=== PATIENT | female | born 1985 | race Caucasian/White ===

== ENCOUNTER 2022-04-14 13:36 | Inpatient (IN) | payer MEDICAID, OTHER ==
[2022-04-14] MEDS ORDERED: Sodium Chloride 0.9% 10 ML Syringe FLUSH PRN (16:00)
[2022-04-14] MEDS ORDERED: Methylergonovine 0.2 MG/1 ML Amp IM PRN (16:00)
[2022-04-14] MEDS ORDERED: Misoprostol 200 MCG Tab RECTAL PRN (16:00)
[2022-04-14] MEDS ORDERED: Carboprost Tromethamine 250 MCG/1 ML Amp IM PRN (16:00)
[2022-04-14] MEDS ORDERED: Lidocaine 1% 50 ML MDV INJECT ONE (16:00)
[2022-04-14] MEDS ORDERED: Oxytocin 10 Units/1 ML SDV IV ONE (16:00)
[2022-04-14] MEDS ORDERED: Ondansetron 4 MG Tab.DIS PO PRN (16:00)
[2022-04-14] MEDS ORDERED: Lactated Ringers 1,000 ML IV ONE (16:52)
[2022-04-14] MEDS ORDERED: fentaNYL 50 MCG/ML SDV IVPUSH ONE (16:53)
[2022-04-14] MEDS ORDERED: ePHEDrine 50 MG/ML SDV IVPUSH PRN (16:55)
[2022-04-14] MEDS ORDERED: Lidocaine 1% 50 ML MDV INJECT PRN (16:58)
[2022-04-14] MEDS ORDERED: Lactated Ringers 1,000 ML IV SCH (17:30)
[2022-04-14] MEDS ORDERED: Docusate Sodium 100 MG Cap PO PRN (18:54)
[2022-04-14] MEDS ORDERED: Witch Hazel Medicated Pads 100/Jar TOP PRN (18:54)
[2022-04-14] MEDS ORDERED: Benzocaine 20% Top Spray 56 GM Bottle TOP PRN (18:54)
[2022-04-14] MEDS ORDERED: Lanolin 100% Cream 40 GM Tube TOP PRN (18:54)
[2022-04-14] MEDS: Acetaminophen 325 MG Tab PO PRN ×2 (19:19→23:21)
[2022-04-14] MEDS: Ibuprofen 600 MG Tab PO PRN (19:20)
[2022-04-15] MEDS: Ibuprofen 600 MG Tab PO PRN ×4 (01:22→20:38)
[2022-04-15] MEDS: Acetaminophen 325 MG Tab PO PRN (03:36)
[2022-04-15] MEDS ORDERED: Non-Formulary Medication 1 Each (Prenatal Vits #93/Iron Fum/Fa [Prenatal Formula Tablet] 1 PO SCH (09:00)
[2022-04-15] MEDS: Prenatal Multivitamin with Calcium/Folic Acid/Iron Tab PO SCH (09:23)
[2022-04-15] MEDS ORDERED: Psyllium Seed (With Sugar) Wafer PO SCH (13:00)
[2022-04-15] MEDS: Psyllium Husk Powder Sugar Free 5.85 GM Packet PO SCH (17:54)
[2022-04-16] MEDS: Prenatal Multivitamin with Calcium/Folic Acid/Iron Tab PO SCH (09:25)
[2022-04-16] MEDS: Ibuprofen 600 MG Tab PO PRN (09:28)
[2022-04-16] MEDS: Psyllium Husk Powder Sugar Free 5.85 GM Packet PO SCH (10:44)
== END 2022-04-16 13:32 | disposition home or self-care (01) | DRG 807 ==
LOC: JP.OBCHECK 13:36 → JP.OB 13:41 → JP.OBCHECK 14:55 → JP.OB 14:55 → JP.MS 21:33
PROVIDERS: ADMIT Family Medicine; ATTEND Family Medicine
PROC: 10E0XZZ Delivery of Products of Conception, External Approach (ICD-10-PCS; principal; 2022-04-14)
PROC: 10907ZC Drainage of Amniotic Fluid, Therapeutic from Products of Conception, Via Natural or Artificial Opening (ICD-10-PCS; 2022-04-14)
PROC: 0HQ9XZZ Repair Perineum Skin, External Approach (ICD-10-PCS; 2022-04-14)
DX: O48.0 Post-term pregnancy (principal); Z37.0 Single live birth; Z20.822 Contact with and (suspected) exposure to COVID-19; O69.81X0 Labor and delivery complicated by cord around neck, without compression, not applicable or unspecified; O70.0 First degree perineal laceration during delivery; Z3A.40 40 weeks gestation of pregnancy; Z91.040 Latex allergy status; Z91.09 Other allergy status, other than to drugs and biological substances; Z28.310 Unvaccinated for COVID-19
CPT/HCPCS: 36415; 51701; 81001; 85025; 86850; 86900; 86901; 99211; A9270-GY; J2590; J3010; J7120; U0002

== ENCOUNTER 2024-08-01 14:24 | Emergency (ER) | payer MEDICAID ==
[2024-08-01 16:12] LABS: BASOPHILS PERCENT AUTO 0.1 % (0.1-1.3); HEMATOCRIT 38.3 % (34.3-46.0); HEMOGLOBIN 13.8 g/dL (11.2-15.5); IMMATURE GRAN ABSOLUTE AUTO 0.05 K/uL (0.00-0.23); IMMATURE GRAN PERCENT AUTO 0.5 % (0.0-0.7); LYMPHOCYTES ABSOLUTE AUTO 0.19 K/uL (0.8-3.3); MEAN CORPUSCULAR HEMOGLOBIN 34.3 pg (31.6-35.5); MEAN CORPUSCULAR VOLUME 95.3 fL (81.4-99.0); MONOCYTES ABSOLUTE AUTO 0.22 K/uL (0.20-0.90); MONOCYTES PERCENT AUTO 2.4 % (3.3-12.6); NEUTROPHILS ABSOLUTE AUTO 8.89 K/uL (1.0-7.6); PLATELET COUNT,PLT 150 K/uL (130-375); RED BLOOD CELL COUNT 4.02 M/uL (3.77-5.24); WHITE BLOOD CELL COUNT,WBC 9.4 K/uL (3.2-11.0)
[2024-08-01] MEDS: Ondansetron 4 MG/2 ML SDV IVPUSH ONE (16:18)
[2024-08-01] MEDS: Sodium Chloride 0.9% 1,000 ML IV ONE (16:18)
[2024-08-01 16:24] LABS: BASOPHILS ABSOLUTE AUTO 0.01 K/uL (0.00-0.10)
[2024-08-01 16:48] LABS: A/G RATIO 0.9 (1.2-2.2); ALANINE AMINOTRANSFERASE,ALT 22 U/L (12-78); ALBUMIN 3.1 g/dL (3.4-5.0); ALKALINE PHOSPHATASE 55 U/L (46-116); ANION GAP 15.3 mmol/L (5.0-14.0); ASPARTATE AMNIOTRANSFERASE,AST 19 U/L (15-37); BILIRUBIN TOTAL 0.7 mg/dL (0.2-1.0); BLOOD UREA NITROGEN,BUN 10 mg/dL (7-18); CALCIUM 8.6 mg/dL (8.5-10.1); CARBON DIOXIDE,CO2 21 mmol/L (21-32); CHLORIDE,CL 105 mmol/L (100-108); CREATININE 0.6 mg/dL (0.6-1.0); EST CRCL DRUG DOSING (CG) 122.42 mL/min; ESTIMATED GFR 117 mL/min (>60); GLUCOSE RANDOM 111 mg/dL (74-106); POTASSIUM,K 3.7 mmol/L (3.6-5.2); PROTEIN TOTAL,TP 6.7 g/dL (6.4-8.2); SODIUM,NA 141 mmol/L (140-148)
[2024-08-01 17:55] LABS: APPEARANCE,URINE SLIGHTLY CLOUDY (CLEAR); BILIRUBIN,URINE NEGATIVE (NEGATIVE); COLOR,URINE YELLOW (YELLOW); GLUCOSE,URINE NEGATIVE (NEGATIVE); KETONES,URINE 40 mg/dL (NEGATIVE); LEUKOCYTE ESTERASE,URINE NEGATIVE (NEGATIVE); NITRITE,URINE NEGATIVE (NEGATIVE); OCCULT BLOOD,URINE TRACE-INTACT (NEGATIVE); PH,URINE 6.5 (5.0-8.0); PROTEIN,URINE 30 mg/dL (NEGATIVE); UROBILINOGEN,URINE 0.2 EU/dL (0.2-1.0)
[2024-08-01 17:57] LABS: AMORPHOUS SEDIMENT,URINE NOT SEEN; BACTERIA,URINE MANY; EPITHELIAL CELLS,URINE FEW; MUCUS,URINE MODERATE; RBC,URINE 0-5 (0-5); WBC,URINE 0-5 (0-5)
== END 2024-08-01 18:31 | disposition home or self-care (01) ==
LOC: JP.ED 14:24
DX: R11.2 Nausea with vomiting, unspecified (principal); Z91.040 Latex allergy status; Z91.018 Allergy to other foods; Z79.82 Long term (current) use of aspirin; Z79.899 Other long term (current) drug therapy
CPT/HCPCS: 36415; 80053; 81001; 85025; 96361; 96374; 99283; 99284-25; J2405; J7030